=== PATIENT | female | born 1995 | race Caucasian/White ===

== ENCOUNTER 2021-09-21 13:18 | Emergency (ER) | payer OTHER, BC ==
[2021-09-21] MEDS ORDERED: Bacitracin/Neomycin/Polymyxin B Oint 0.9 GM U/D Packet TOP ONE (14:15)
== END 2021-09-21 14:30 | disposition home or self-care (01) ==
LOC: LL.ED 13:18
DX: S60.511A Abrasion of right hand, initial encounter (principal); Z87.891 Personal history of nicotine dependence; W55.03XA Scratched by cat, initial encounter
CPT/HCPCS: 99282